=== PATIENT | male | born 1990 | race Caucasian/White ===

== ENCOUNTER 2016-12-12 22:43 | Emergency (ER) | payer MEDICAID ==
[~2016-12-12] VITALS: Ht 180.3 cm; Wt 105.0 kg
[~2016-12-12 22:43] MED LIST: TRAM50TA2 PO
[2016-12-12 22:44] VITALS: BP 139/90
[2016-12-12] MEDS ORDERED: KETOROLAC 30 MG/1 ML IM ONE (23:00)
[2016-12-12] MEDS ORDERED: KETOROLAC 30 MG/1 ML ONE (23:04)
== END 2016-12-13 00:24 | disposition home or self-care (01) ==
LOC: ED 23:40
DX: S13.9XXA Sprain of joints and ligaments of unspecified parts of neck, initial encounter (principal); S23.3XXA Sprain of ligaments of thoracic spine, initial encounter; M62.830 Muscle spasm of back; Z90.49 Acquired absence of other specified parts of digestive tract; V89.2XXA Person injured in unspecified motor-vehicle accident, traffic, initial encounter; Y93.89 Activity, other specified; Y99.8 Other external cause status; Y92.89 Other specified places as the place of occurrence of the external cause
CPT/HCPCS: 72072; 72125; 96372; 99284; J1885

== ENCOUNTER 2017-01-23 20:11 | Emergency (ER) | payer MEDICAID ==
[~2017-01-23] VITALS: Ht 180.3 cm; Wt 104.9 kg
[2017-01-23 20:12] VITALS: BP 157/86
[2017-01-23] MEDS ORDERED: ONDANSETRON ODT 4 MG ONE (21:19)
[2017-01-23] MEDS ORDERED: PANTOPRAZOLE 20MG TABLET ONE ×2 (21:19→21:26)
[2017-01-23] MEDS ORDERED: ONDANSETRON ODT 4 MG PO ONE (21:30)
[2017-01-23] MEDS ORDERED: PANTOPRAZOLE 20MG TABLET PO ONE (21:30)
[2017-01-23 21:31] LABS: ASPARTATE AMINO TRANSFERASE 15 U/L (15-37); BLOOD UREA NITROGEN 16 mg/dL (7-18)
== END 2017-01-23 22:21 | disposition left against medical advice (07) ==
LOC: ED 22:05
DX: R10.11 Right upper quadrant pain (principal); Z90.49 Acquired absence of other specified parts of digestive tract; Z90.89 Acquired absence of other organs
CPT/HCPCS: 36415; 80053; 83690; 85025; 99284

== ENCOUNTER 2017-02-15 06:29 | Emergency (ER) | payer MEDICAID ==
[2017-02-15] MEDS ORDERED: MAALOX/HYOSCYAMINE/LIDOCAINE 45 ML BOTTLE ONE (07:03)
[2017-02-15] MEDS ORDERED: FAMOTIDINE 20 MG TABLET ONE (08:03)
[2017-02-16 13:16] LABS: BLOOD UREA NITROGEN 13 mg/dL (7-18)
[2017-02-16 14:03] LABS: ASPARTATE AMINO TRANSFERASE 24 U/L (15-37)
== END 2017-02-15 09:33 ==
LOC: ED 06:29
DX: K29.00 Acute gastritis without bleeding (principal); Z88.0 Allergy status to penicillin
CPT/HCPCS: 36415; 76700; 80048; 80076; 81003; 82040; 83690; 85025

== ENCOUNTER 2017-05-03 12:42 | Emergency (ER) | payer MEDICAID ==
[~2017-05-03] VITALS: Ht 180.3 cm; Wt 105.6 kg
[2017-05-03 13:54] LABS: HEMATOCRIT 48.1 % (39.2-51.8); HEMOGLOBIN 16.4 g/dL (13.7-18.0); WHITE BLOOD COUNT 8.8 x10^3/uL (3.4-10)
[2017-05-03 14:04] LABS: ASPARTATE AMINO TRANSFERASE 16 U/L (15-37); BLOOD UREA NITROGEN 12 mg/dL (7-18)
[2017-05-03 14:30] VITALS: BP 120/70
== END 2017-05-03 14:58 | disposition home or self-care (01) ==
LOC: ED 13:52
DX: R10.13 Epigastric pain (principal); F17.200 Nicotine dependence, unspecified, uncomplicated; Z90.49 Acquired absence of other specified parts of digestive tract
CPT/HCPCS: 36415; 74020; 80053; 83690; 85025; 99285

== ENCOUNTER 2017-06-10 11:25 | Emergency (ER) | payer MEDICAID ==
[~2017-06-10] VITALS: Ht 180.3 cm; Wt 106.5 kg
[2017-06-10 11:27] VITALS: BP 115/75
[2017-06-10] MEDS ORDERED: ALBUTEROL/IPRATROPIUM 2.5MG/0.5MG, 3 ML NPPB ONE (12:30)
[2017-06-10] MEDS ORDERED: PLEASE ENTER HEIGHT AND WEIGHT MC SCH (13:00)
[2017-06-10] MEDS ORDERED: ALBUTEROL/IPRATROPIUM 2.5MG/0.5MG, 3 ML ONE (13:22)
== END 2017-06-10 13:49 | disposition home or self-care (01) ==
LOC: ED 13:24
DX: B34.9 Viral infection, unspecified (principal); J45.909 Unspecified asthma, uncomplicated; Z90.49 Acquired absence of other specified parts of digestive tract; Z87.891 Personal history of nicotine dependence
CPT/HCPCS: 71020; 93005; 94640; 99284; J7512; J7620

== ENCOUNTER 2018-06-22 16:08 | Emergency (ER) | payer MEDICAID, OTHER ==
[~2018-06-22] VITALS: Ht 180.3 cm; Wt 110.5 kg
[2018-06-22 16:16] VITALS: BP 129/83
[2018-06-22] MEDS ORDERED: IBUPROFEN 200 MG TABLET PO ONE (16:30)
[2018-06-22] MEDS ORDERED: IBUPROFEN 200 MG TABLET ONE (16:34)
== END 2018-06-22 16:53 | disposition home or self-care (01) ==
LOC: ED 16:30
DX: J02.8 Acute pharyngitis due to other specified organisms (principal); B97.89 Other viral agents as the cause of diseases classified elsewhere; Z90.49 Acquired absence of other specified parts of digestive tract
CPT/HCPCS: 87081; 87880; 99284